=== PATIENT | female | born 1965 | race Two or more races ===

== ENCOUNTER 2022-12-31 01:12 | Emergency (ER) | payer MEDICAID ==
[~2022-12-31] VITALS: Ht 170.2 cm; Wt 79.5 kg
[2022-12-31 02:35] VITALS: BP 160/77
[2022-12-31] MEDS ORDERED: BACITRACIN ZINC OINT (15 GM) 15 GM TUBE TP STA (03:06)
[2022-12-31] MEDS ORDERED: IBUP-1953 PO (03:14)
[2022-12-31] MEDS ORDERED: CEPH500T PO (03:14)
[2022-12-31] MEDS ORDERED: TDAP [DIPH/PERTUSSIS/TET] 0.5 ML VIAL IM ONE ×2 (03:17→03:30)
--- NOTE | 2022-12-31 03:30 | NUR ---
WOUND CARE DONE TO R 3RD FINGER
[2022-12-31] MEDS ORDERED: CEPHALEXIN MONOHYDRATE 500 MG CAPSULE PO ONE ×2 (03:48→04:00)
[2022-12-31] MEDS ORDERED: IBUPROFEN 400 MG TABLET ONE (03:49)
--- NOTE | 2022-12-31 03:52 | NUR ---
Patient discharged to home in stable condition.RXWritten and verbal after care instructions given. Patient verbalizes understanding of instruction.
[2022-12-31] MEDS ORDERED: IBUPROFEN 600 MG TABLET PO ONE (04:00)
== END 2022-12-31 04:00 | disposition home or self-care (01) ==
LOC: ER 01:16
DX: S60.444A External constriction of right ring finger, initial encounter (principal); I10 Essential (primary) hypertension; E11.9 Type 2 diabetes mellitus without complications; F31.9 Bipolar disorder, unspecified; F20.9 Schizophrenia, unspecified; Z59.00 Homelessness unspecified; W49.04XA Ring or other jewelry causing external constriction, initial encounter; Y93.89 Activity, other specified; Y92.89 Other specified places as the place of occurrence of the external cause; Y99.8 Other external cause status
CPT/HCPCS: 90715